=== PATIENT | male | born 1990 | race Caucasian/White ===

== ENCOUNTER 2022-02-16 14:16 | Emergency (ER) | payer SELFPAY ==
[~2022-02-16] VITALS: Ht 190.5 cm; Wt 59.0 kg
[2022-02-16 14:19] VITALS: BP_SYST 132
[2022-02-16] MEDS ORDERED: LIDOCAINE 1% 10 MG/ML, 50 ML MDV INJ ONE (14:45)
[2022-02-16] MEDS ORDERED: MORPHINE 4 MG INJ. 4 MG/ML VIAL IM ONE (14:45)
[2022-02-16] MEDS ORDERED: MORPHINE 4 MG INJ. 4 MG/ML VIAL IVP ONE (14:45)
[2022-02-16] MEDS ORDERED: LIDOCAINE 1%, 20 ML MDV 20 ML ONE (14:54)
[2022-02-16] MEDS ORDERED: IBUP-1505 PO (16:03)
[2022-02-16 16:24] VITALS: BP_SYST 132
== END 2022-02-16 16:25 | disposition home or self-care (01) ==
LOC: SED 14:16
DX: S43.014A Anterior dislocation of right humerus, initial encounter (principal); Z79.899 Other long term (current) drug therapy; W01.0XXA Fall on same level from slipping, tripping and stumbling without subsequent striking against object, initial encounter; Y93.89 Activity, other specified; Y92.89 Other specified places as the place of occurrence of the external cause; Y99.8 Other external cause status
CPT/HCPCS: 99284; 23650; 96374; 73030; 73020; J2001; J2270